=== PATIENT | male | born 1990 | race Caucasian/White ===

== ENCOUNTER → 2020-09-26 | Outpatient (REF) | LOC: M LAB 09:54 | PROVIDERS: ATTEND Nurse Practitioner Adult Health | DX: Z00.00 Encounter for general adult medical examination without abnormal findings (principal) ==

== ENCOUNTER → 2020-10-08 | Outpatient (REF) ==
[~2020-10-08] MED LIST: COVID-19 VAC,AD26(JANSSEN)/PF 0.5ML SYRINGE (EUA) IM ONE
== END ==
LOC: M EMP 12:03
PROVIDERS: ATTEND Family Medicine
DX: Z23 Encounter for immunization (principal)

== ENCOUNTER → 2021-03-21 | Outpatient (REF) | LOC: M EMP 11:39 | PROVIDERS: ATTEND Family Medicine | DX: Z11.52 Encounter for screening for COVID-19 (principal) ==

== ENCOUNTER → 2021-03-26 | Outpatient (REF) | LOC: M EMP 10:05 | PROVIDERS: ATTEND Family Medicine | DX: Z20.822 Contact with and (suspected) exposure to COVID-19 (principal) ==

== ENCOUNTER → 2021-09-19 | Outpatient (REF) | payer BC | LOC: M SFHCDERM 13:14 | PROVIDERS: ATTEND Nurse Practitioner Family | DX: D22.5 Melanocytic nevi of trunk (principal); D49.2 Neoplasm of unspecified behavior of bone, soft tissue, and skin ==

== ENCOUNTER → 2021-11-24 | Outpatient (CLI) | payer BC | LOC: M SLEEP 20:00 | PROVIDERS: ATTEND Physician Assistant | DX: R40.0 Somnolence (principal); R06.83 Snoring ==

== ENCOUNTER → 2022-09-30 | Outpatient (REF) | LOC: M RAD 10:43 | PROVIDERS: ATTEND Nurse Practitioner Adult Health | DX: Z02.89 Encounter for other administrative examinations (principal) ==

== ENCOUNTER → 2022-10-27 | Outpatient (REF) | LOC: M CARPUL 10:01 | PROVIDERS: ATTEND Nurse Practitioner Adult Health | DX: Z02.1 Encounter for pre-employment examination (principal) ==

== ENCOUNTER → 2023-03-09 | Outpatient (REF) | LOC: M EMP 07:48 | PROVIDERS: ATTEND Family Medicine | DX: Z11.52 Encounter for screening for COVID-19 (principal) ==

== ENCOUNTER 2023-08-12 18:48 | Emergency (ER) | payer BC ==
[~2023-08-12] VITALS: Ht 175.3 cm; Wt 88.6 kg
[2023-08-12 19:05] VITALS: TEMP 96.7
[2023-08-12] MEDS: FAMOTIDINE 20MG/2ML VIAL IVP ONE (19:23)
[2023-08-12 19:44] LABS: BASO % 0.1 % (0.0-1.0); EOS # 0.1 10^3/uL (0.0-0.5); EOS % 0.6 % (0.0-3.0); HEMATOCRIT 43.9 % (42.0-52.0); HEMOGLOBIN 14.6 g/dl (13.5-17.5); LYMPH # 2.6 10^3/uL (1.5-5.0); LYMPH % 18.6 % (24.0-44.0); MEAN CORPUSCULAR HEMOGLOBIN 28.5 pg (27.0-33.0); MEAN CORPUSCULAR HGB CONC 33.3 g/dl (32.0-36.5); MEAN CORPUSCULAR VOLUME 85.7 fl (80.0-96.0); MONO # 0.6 10^3/uL (0.0-0.8); MONO % 4.1 % (2.0-8.0); NEUTROPHILS # 10.5 10^3/uL (1.5-8.5); NEUTROPHILS % 75.8 % (36.0-66.0); PLATELET COUNT, AUTOMATED 271 10^3/uL (150-450); RED BLOOD COUNT 5.12 10^6/uL (4.30-6.10); WHITE BLOOD COUNT 13.8 10^3/uL (4.0-10.0)
[2023-08-12 20:08] LABS: BLOOD UREA NITROGEN 19 MG/DL (9-23); CALCIUM LEVEL 8.8 MG/DL (8.5-10.1); CARBON DIOXIDE LEVEL 26 MMOL/L (20-31); CHLORIDE LEVEL 104 MMOL/L (98-107); CREATININE FOR GFR 0.88 MG/DL (0.70-1.30); GLOMERULAR FILTRATION RATE > 60.0 (>60); GLUCOSE, FASTING 133 MG/DL (60-100); POTASSIUM SERUM 3.9 MMOL/L (3.5-5.1); SODIUM LEVEL 138 MMOL/L (136-145)
[2023-08-12 21:58] VITALS: BP 108/66; O2SAT 98
[2023-08-12] MEDS ORDERED: EPIP0.3I2 IM (22:16)
== END 2023-08-12 22:29 | disposition home or self-care (01) ==
LOC: EDBD 18:48 → M ED 18:48
DX: T63.441A Toxic effect of venom of bees, accidental (unintentional), initial encounter (principal); Z91.030 Bee allergy status
CPT/HCPCS: 80048; 85025; 93005; 93041; 94760; 96374; 99284; S0028

== ENCOUNTER → 2024-09-21 | Outpatient (REF) ==
[~2024-09-21] MED LIST changes: -COVID-19 VAC,AD26(JANSSEN)/PF 0.5ML SYRINGE (EUA) IM ONE; +EPIP0.3I2 IM
== END ==
LOC: M CARPUL 07:56
PROVIDERS: ATTEND Nurse Practitioner Adult Health
DX: Z01.89 Encounter for other specified special examinations (principal)

== ENCOUNTER → 2024-10-21 | Outpatient (CLI) | payer BC | LOC: M RAD 15:37 | DX: R10.30 Lower abdominal pain, unspecified (principal) ==

== ENCOUNTER → 2025-02-08 | Outpatient (REF) | payer BC | LOC: M LAB REF 12:16 | PROVIDERS: ATTEND Physician Assistant | DX: B34.9 Viral infection, unspecified (principal) ==